=== PATIENT | female | born 1950 | race Caucasian/White ===

== ENCOUNTER 2021-07-31 01:08 | Outpatient (CLI) | payer MEDICARE, BC, SELFPAY ==
--- NOTE | 2021-07-31 07:15 | DI.US_ITS ---
Exam(s) US LOWER EXTREMITY VENOUS LT EXAM: US LOWER EXTREMITY VENOUS LT CLINICAL HISTORY: left calf pain and swelling posterior to knee,m79.89 TECHNIQUE: Ultrasound performed using standard protocol. COMPARISON: No exams were available for comparison FINDINGS: Duplex venous ultrasound was performed to evaluate suspected DVT left lower extremity. Note is made of isolated deep vein thrombus in the gastrocnemius vein. Remainder of the deep veins of the calf ar e free of thrombus. There is superficial venous thrombosis noted in calf veins. No thrombus identif ied in the deep veins of the. IMPRESSION: Isolated DVT in gastrocnemius vein on the left. No additional DVT identified. DATA REPOSITORY:
== END 2021-07-31 01:28 ==
PROVIDERS: Visit Provider Physician Assistant
DX: M79.89 Other specified soft tissue disorders (principal); M79.662 Pain in left lower leg; I82.4Z2 Acute embolism and thrombosis of unspecified deep veins of left distal lower extremity
CPT/HCPCS: 93971